=== PATIENT | female | born 1950 | race Asian ===

== ENCOUNTER → 2023-04-18 14:36 | Outpatient (REF) | payer MEDICARE, OTHER, SELFPAY | LOC: WDC 14:36 | PROVIDERS: ATTENDING PHYSICIAN Obstetrics & Gynecology; FAMILY PHYSICIAN Internal Medicine | DX: Z12.31 Encounter for screening mammogram for malignant neoplasm of breast (principal) | CPT/HCPCS: 77063; 77067 ==

== ENCOUNTER 2023-05-04 14:04 | Outpatient (RCR) | payer MEDICARE, OTHER, SELFPAY | END 2023-05-04 23:59 | disposition home or self-care (01) | LOC: RPT 14:04 | PROVIDERS: ATTENDING PHYSICIAN Internal Medicine | DX: M62.81 Muscle weakness (generalized) (principal); Z73.6 Limitation of activities due to disability; M54.50 Low back pain, unspecified; M25.551 Pain in right hip; M81.0 Age-related osteoporosis without current pathological fracture; Z85.07 Personal history of malignant neoplasm of pancreas | CPT/HCPCS: 97010; 97110; 97112; 97162 ==

== ENCOUNTER 2023-05-31 16:07 | Outpatient (RCR) | payer MEDICARE, OTHER, SELFPAY | END 2023-05-31 23:59 | disposition home or self-care (01) | LOC: RPT 16:07 | PROVIDERS: ATTENDING PHYSICIAN Internal Medicine | DX: M62.81 Muscle weakness (generalized) (principal); Z73.6 Limitation of activities due to disability; M54.50 Low back pain, unspecified; M25.551 Pain in right hip; M81.0 Age-related osteoporosis without current pathological fracture; Z85.07 Personal history of malignant neoplasm of pancreas | CPT/HCPCS: 97010; 97110; 97112 ==

== ENCOUNTER 2023-06-19 15:58 | Outpatient (RCR) | payer MEDICARE, OTHER, SELFPAY | END 2023-06-22 08:44 | disposition home or self-care (01) | LOC: RPT 15:58 | PROVIDERS: ATTENDING PHYSICIAN Internal Medicine | DX: M62.81 Muscle weakness (generalized) (principal); Z73.6 Limitation of activities due to disability; M54.50 Low back pain, unspecified; M25.551 Pain in right hip; M81.0 Age-related osteoporosis without current pathological fracture; Z85.07 Personal history of malignant neoplasm of pancreas | CPT/HCPCS: 97110; 97112 ==

== ENCOUNTER → 2023-08-20 15:20 | Outpatient (REF) | payer MEDICARE, OTHER, SELFPAY | LOC: RAD 15:20 | PROVIDERS: ATTENDING PHYSICIAN Internal Medicine | DX: M79.674 Pain in right toe(s) (principal) | CPT/HCPCS: 73660 ==

== ENCOUNTER → 2023-08-31 11:27 | Outpatient (REF) | payer MEDICARE, OTHER, SELFPAY ==
[2023-08-31 13:52] LABS: % Basophils 0.6 % (0-2); % Eosinophils 2.3 % (0-6); % Immature Granulocytes 0.2 % (0-0.5); % Lymphocytes 27.8 % (20.5-51.1); % Monocytes 7.5 % (1.7-9.3); % Neutrophils 61.6 % (42.2-75.2); Absolute Eosinophils 0.1 10^3/uL (0-0.7); Absolute Lymphocytes 1.3 10^3/uL (1.2-3.4); Absolute Monocytes 0.4 10^3/uL (0.1-0.6); Absolute Neutrophils 2.9 10^3/uL (1.4-6.5); Hematocrit 38.1 % (37.0-47.0); Hemoglobin 12.8 g/dL (12.0-16.0); Mean Corp Hgb Conc. 33.6 g/dL (33.0-37.0); Mean Corpuscular Hgb 28.7 pg (27.0-31.0); Mean Corpuscular Volume 85.4 fL (81.0-99.0); Mean Platelet Volume 9.3 fL (7.4-10.4); Nucleated Red Blood Cells % 0 %; Platelet Count 237 10^3/uL (130-400); Red Blood Cell Count 4.46 10^6/uL (4.20-5.40); Red Cell Dist. Width 13.2 % (11.5-14.5); White Blood Cell Count 4.8 10^3/uL (4.8-10.8)
[2023-08-31 14:17] LABS: ALT (SGPT) 19 U/L (0-35); AST (SGOT) 21 U/L (14-36); Albumin 4.3 g/dl (3.5-5.0); Alkaline Phosphatase 87 U/L (38-126); Blood Urea Nitrogen 26 mg/dl (7-17); Calcium 9.9 mg/dl (8.4-10.2); Carbon Dioxide 27 mmol/L (22-30); Chloride 101 mmol/L (98-107); Glucose 88 mg/dl (70-99); HDL Cholesterol 53 mg/dl; Iron 91 ug/dl (37-170); LDL Cholesterol, Calculated 100 mg/dl; Potassium 4.6 mmol/L (3.5-5.1); Sodium 134 mmol/L (135-145); Total Bilirubin 0.5 mg/dl (0.2-1.3); Total Cholesterol 179 mg/dl (50-199); Triglyceride 132 mg/dl (10-149); Uric Acid 5.1 mg/dl (2.5-6.2); Very Low Density Lipoprotein 26 mg/dl (0-30); eGFR 53.39
[2023-08-31 14:26] LABS: Percent Saturation 20 % (20-50); Total Iron Binding Capacity 436 ug/dl (265-497); Total Protein 6.9 g/dl (6.3-8.2)
[2023-08-31 14:46] LABS: TSH Reflex To Free T4 0.08 uIU/ml (0.47-4.68)
[2023-08-31 14:50] LABS: Ferritin 17.8 ng/ml (11.1-264.0)
[2023-08-31 15:13] LABS: Free T4 1.67 ng/dl (0.78-2.19)
== END ==
LOC: REG 11:27
PROVIDERS: ATTENDING PHYSICIAN Internal Medicine
DX: Z85.07 Personal history of malignant neoplasm of pancreas (principal); M81.0 Age-related osteoporosis without current pathological fracture; I10 Essential (primary) hypertension; E78.5 Hyperlipidemia, unspecified; E55.9 Vitamin D deficiency, unspecified; E03.9 Hypothyroidism, unspecified; C25.0 Malignant neoplasm of head of pancreas; E78.2 Mixed hyperlipidemia
CPT/HCPCS: 36415; 80053; 80061; 82728; 83540; 83550; 84439; 84443; 84550; 85025

== ENCOUNTER → 2024-02-20 16:26 | Outpatient (REF) | payer MEDICARE, OTHER, SELFPAY | LOC: RAD 16:26 | PROVIDERS: ATTENDING PHYSICIAN Nurse Practitioner Family; FAMILY PHYSICIAN Internal Medicine | DX: M79.602 Pain in left arm (principal) | CPT/HCPCS: 73060; 73110; 73130 ==

== ENCOUNTER 2024-03-31 17:25 | Observation (INO) | payer MEDICARE, OTHER, SELFPAY ==
[2024-03-31] VITALS (9 sets, daily range): BP systolic 139–157; BP diastolic 60–103; BMI 24.8; BMI 24.1
[2024-03-31 13:54] LABS: % Basophils 0.5 % (0-2); % Eosinophils 0.3 % (0-6); % Immature Granulocytes 0.2 % (0-0.5); % Lymphocytes 21.8 % (20.5-51.1); % Monocytes 3.7 % (1.7-9.3); % Neutrophils 73.5 % (42.2-75.2); Absolute Lymphocytes 1.4 10^3/uL (1.2-3.4); Absolute Monocytes 0.2 10^3/uL (0.1-0.6); Absolute Neutrophils 4.5 10^3/uL (1.4-6.5); Hematocrit 38.6 % (37.0-47.0); Hemoglobin 13.4 g/dL (12.0-16.0); Mean Corp Hgb Conc. 34.7 g/dL (33.0-37.0); Mean Corpuscular Hgb 29.6 pg (27.0-31.0); Mean Corpuscular Volume 85.4 fL (81.0-99.0); Mean Platelet Volume 8.7 fL (7.4-10.4); Nucleated Red Blood Cells % 0 %; Platelet Count 205 10^3/uL (130-400); Red Blood Cell Count 4.52 10^6/uL (4.20-5.40); Red Cell Dist. Width 12.1 % (11.5-14.5); White Blood Cell Count 6.2 10^3/uL (4.8-10.8)
[2024-03-31 14:08] LABS: ALT (SGPT) 22 U/L (0-35); AST (SGOT) 23 U/L (14-36); Albumin 4.6 g/dl (3.5-5.0); Alkaline Phosphatase 115 U/L (38-126); Blood Urea Nitrogen 22 mg/dl (7-17); Calcium 10.2 mg/dl (8.4-10.2); Carbon Dioxide 19 mmol/L (22-30); Chloride 92 mmol/L (98-107); Glucose 129 mg/dl (70-99); Lipase 16 U/L (23-300); Potassium 4.9 mmol/L (3.5-5.1); Sodium 124 mmol/L (135-145); Total Bilirubin 0.9 mg/dl (0.2-1.3); Total Protein 7.6 g/dl (6.3-8.2)
--- NOTE | 2024-03-31 15:03 | ED.GENMED ---
History of Present Illness
General
Chief Complaint: Abdominal Symptoms
Source: patient and spouse
Exam Limitations: none
Time Seen by Provider: 03/31/24 14:27
History of Present Illness
History of Present Illness:
73yoF with a history of pancreatic cancer s/p Whipple procedure 10 years ago, hypertension, hypothyroidism, and GERD presenting with her for evaluation of vomiting. Symptoms began last night. Patient reports having several episodes of
large-volume emesis. She has been trying to keep down liquids and rice but has been unable to tolerate it. Patient denies any abdominal pain although states she has a stretching sensation in her left upper quadrant. She had a normal bowel
movement earlier today. She was around her son and grandchildren yesterday who are currently sick with URI symptoms and diarrhea. She denies any suspicious food intake. She is otherwise asymptomatic and denies any fevers, diarrhea, chest pain,
shortness of breath.
Past History
Past History
ED Past Medical History: Hypothyroidism, Other (pancreatic CA) and Other (GERD, Kaelyn Whipple, Cancer, hypothyroidism, osteoporosis with recent Reclas)
ED Past Surgical History: Other (Whipple procedure)
Social History
Tobacco: Non-smoker
Alcohol: None
Drug: None
Personal:
Living: with family
Employment: Employed
Family History
Family History: Other (Nonsignificant)
Phy Exam
General Physical Exam
General Presentation: well appearing and no apparent distress
General age: appears stated age
General Skin: warm and dry
General Habitus: normal
General Mental: alert
ENT Exam
ENT Exam: normocephalic
Cardiovascular Exam
Cardiovascular Exam: regular rate/rhythm
Pulmonary Exam
Pulmonary Exam: lungs clear, no respiratory distress, no rales, no crackles and no rhonchi
Gastrointestinal Exam
Gastrointestinal Exam: soft, non distended and other (Minimal tenderness in epigastric region. Abdomen soft, non-distended. No rebound or guarding. )
Neurological Exam
Neurological Exam: alert
Wheeler Coma Scale
Eye Opening: Spontaneous
Verbal Response: Oriented
Motor Response: Obeys Commands
GCS Total Score: 15
Skin Exam
Skin Exam: normal color and warm/dry
Psychiatric Exam
Psychiatric Exam: normal mood/affect
Course
Orders/Labs/Results
Orders:
Orders
03/31/24 13:46
Complete Blood Count/With Diff Urgent
Comprehensive Metabolic Panel Urgent
Cortisol, Random Urgent
Comment: ADD ON
Glycohemoglobin (HgbA1c) Urgent
Lipase Urgent
Serum Osmolality Urgent
Comment: ADD ON
TSH Reflex To Free T4 Urgent
Comment: ADD ON
03/31/24 14:50
Electrocardiogram (*1) Urgent
Reason for Study: Abdominal Pain
0.9% Sodium Chloride 1000 ml [Nss] 1,000 ml IV BOLUS
Ondansetron Injectable [Zofran] 4 mg IV NOW STA
03/31/24 15:31
COVID-19 Antigen Urgent
Source: Nasal Swab
Troponin I Urgent
Influenza A+B Rapid Molecular Urgent
ANGELIQUE Source: Nasal Swab
Specimen Description:
03/31/24 17:04
Code Status As Directed
Resuscitation Status: Full Code
Bisacodyl [Dulcolax] 10 mg RECTAL [id number] PRN
Docusate W/Senna [Senokot-S] 1 tablet PO BIDPRN PRN
Polyethylene Glycol Powder [Miralax] 17 grams PO DAILYPRN PRN
Activity As Directed
Activity Level: Out of Bed-Early Mobility
Vital Signs As Directed
Frequency: Per unit guidelines
Weight As Directed
Frequency: Daily
03/31/24 17:09
Ondansetron Injectable [Zofran] 4 mg IV Q6HPRN PRN
Sequential Compression Device [Pneumatic Compression Sleeves] As Directed
Type: Knee high
03/31/24 17:11
Add On- LAB Routine
Tests Added?: serum osm,cortisol,tsh reflex to T4
Urine Osmolality Random [Osmolality, Random Urine] Urgent
Urine Sodium Urgent
DX Deep Vein Thrombosis Video Routine
03/31/24 17:12
Add On- LAB Routine
Tests Added?: HbA1C, TSH WITH REFLEX TO t4
Admit/Transfer Patient As Directed
Co-Sign Provider:
Level of Care: Observation services
Assign to:: Medical/Surgical
Physician / Group: Hospitalist
Diagnosis: Vomiting, Hyponatremia
03/31/24 17:13
PRN Pain Medication Management As Directed
May give lesser potent ordered pain med per pt: Yes
preference::
Protocol:: Medication orders for pain may be administered in a
manner that supports deferring to patient preference
when the pt is:
- Requesting an ordered lesser potent pain medication.
Least to most potent pain medications are defined
as: acetaminophen < NSAID < tramadol < opioids
(morphine, oxycodone, hydromorphone).
- Requesting a lesser dose of the same medication IF
ORDERED.
- Requesting a less intrusive route of administration
if both routes are prescribed by the provider (PO <
IV).
03/31/24 20:52
Levothyroxine [Synthroid] 112 mcg PO DAILY
Nortriptyline [Pamelor] 10 mg PO NOON
Omeprazole Suspension [Prilosec Baby Oral Suspension] 20 mg PO DAILY
jozxcn-mjcjxolz-etibyjo [Pancreaze] 2 cap PO MEALS
03/31/24 22:00
Amlodipine [Norvasc] 2.5 mg PO HS
Gabapentin [Neurontin] 600 mg PO HS
04/01/24 06:00
Basic Metabolic Panel IN AM
Complete Blood Count/With Diff IN AM
Magnesium IN AM
Vitamin B12 IN AM
04/01/24 08:00
Aspirin Low Dose EC [Aspir Low (Enteric Coated)] 81 mg PO DAILY
Ferrous Sulfate [Feosol] 325 mg PO DAILY
Lactobac/Bifidobac [Visbiome] 1 cap PO DAILY
Abnormal Lab Results
03/31/24
13:46
Sodium 124 L mmol/L
(135-145)
Chloride 92 L mmol/L
(98-107)
Carbon Dioxide 19 L mmol/L
(22-30)
BUN 22 H mg/dl
(7-17)
Creatinine 1.2 H mg/dL
(0.6-1.0)
Glucose 129 H mg/dl
(70-99)
Serum Osmolality 265 L mOsm/kg
(275-300)
Lipase 16 L U/L
(23-300)
03/31/24 13:46
03/31/24 13:46
Vital Signs
Initial and Last Documented VS:
Initial Vital Signs
Temp Pulse Resp BP Pulse Ox
97.5 F 89 24 149/75 100
03/31/24 13:36 03/31/24 13:36 03/31/24 13:36 03/31/24 13:36 03/31/24 13:36
Last Documented Vital Signs
Temp Pulse Resp BP Pulse Ox
98.4 F 79 14 139/61 99
03/31/24 16:30 03/31/24 20:30 03/31/24 20:30 03/31/24 20:00 03/31/24 20:30
MDM/Problems Addressed
Differential Diagnosis Includes:
73yoF here with nausea and vomiting since last night. +Sick contacts. No fevers or diarrhea. Denies abd pain currently. VSS. She is well appearing in no distress. There is minimal tenderness in the epigastric region on exam without signs of
peritonitis. Differential diagnosis includes but is not limited to: gastroenteritis, viral illness, dehydration
Initial ED plan: Abdominal labs obtained in triage. Labs reveal a sodium of 124, chloride 92, and bicarb of 19. Lab abnormalities likely 2/2 GI losses/dehydration. Creatinine 1.2 which is close to baseline. Remainder of labs including white
count and lipase within normal limits. COVID/flu swab and troponin/EKG ordered. IV Zofran and fluid bolus for symptoms. Recommended CT abdomen which patient declines stating she had a CT last month for cancer screening which was normal. Patient
will require hospitalization given degree of hyponatremia.
*EKG
Interpreted by ED Provider?: Yes
EKG Intrepretation Date: 03/31/24
Heart Rate: 80
Rate: normal
Rhythm: sinus
Leeds: normal axis
Interval: normal interval
QRS Pattern: normal QRS
Ischemia: no ischemia
*Critical Care Note
Total Time (30-74mins, 75-104mins- exclusive of procedures): Not Applicable
ED Attending Note
-
Portions of this chart may have been created with voice recognition software.� Occasional wrong word or��sound alike� substitutions may have occurred due to the inherent limitations of voice recognition software.
Discharge Plan
Departure
Patient Disposition: Admit
Date of Disposition: 03/31/24
Time of Disposition: 16:20
Presentation/result/management discussed w/ accepting MD/DO: Hospitalist
Discharge Problem:
Nausea and vomiting, Hyponatremia
Interventions
Interventions:
*Risk Screen - Suicide Last Done: 03/31/24 19:40
*General Assessment Last Done: 03/31/24 19:30
*Neglect/Abuse Screening Last Done: 03/31/24 19:40
*ED COVID-19 Vaccine History Last Done: 03/31/24 19:28
WE-Kzgivk-Lwlvsvgmrf Assessment Last Done: 03/31/24 16:00
[2024-03-31] MEDS: NSS 1000 IV (15:28)
[2024-03-31 16:09] LABS: Troponin I < 0.012 ng/ml
[2024-03-31 16:24] LABS: COVID-19 Antigen Negative (Negative)
--- NOTE | 2024-03-31 17:17 | HPS.HSE ---
Addendum entered and electronically signed by Nuria Awad MD 03/31/24 18:18:
I personally performed a history and physical exam of the patient and discussed management with the resident. I reviewed the resident's note and agree with the documented findings and plan of care HPI/CC except changes in my documentation.
73-year-old female with history of pancreatic cancer with Whipple surgery 10 years ago presented with vomiting. Denies any pain she was around her son and grandchildren who are sick with URI symptoms and diarrhea.
Patient is feeling better now
Awake alert oriented
Cardiovascular system S1-S2 appreciated
Chest clear to auscultation
Abdomen soft and nontender
# Vomiting
Admit to Obs
Multiple sick [id number]-[id number]-ly-law, granddaughter who she visited over the weekend now sick with similar symptoms
Likely viral gastroenteritis no diarrhea
Clears tonight
Dehydration likely secondary to above
Symptomatic treatment with antiemetics, IV fluids
She had a bowel movement today
Abdomen exam benign
She wants to hold off on any imaging at present, which is fine
If symptoms are persisting with symptomatic management to consider imaging which I discussed with patient and at bedside
# Hyponatremia-likely hypovolemic. But check serum and urine osmolality, urine sodium, cortisol and TSH. D5 normal saline and follow sodium in the morning
# CKD stage II
# History of pancreatic cancer with history of Whipple procedure done [place] -on Pancreaze 3 times daily. Gets follow-ups every 6 months
# GERD-continue PPI
# Hypertension - amlodipine
# Hypothyroidism-Synthroid 112 mcg daily
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
# GERD-continue PPI
# Osteoporosis-on Prolia as OP
# DVT prophylaxis-Lovenox
# CODE STATUS-Full code
Discussed in detail with at bedside.
Original Note:
Family Physician
-
Family Physician: Patricia Whipple
Chief Complaint
-
Nausea and vomiting
History of Present Illness
73-year-old female with PMH of pancreatic cancer s/p Whipple procedure 2014 (follows GI specialist at [facility]) s/p chemo and radiation with residual peripheral neuropathy, CKD stage IIIa, essential hypertension, mixed hyperlipidemia, GERD, osteoporosis,
acquired hypothyroidism who presented to the ED on 03/31 with 1 day history of nausea and vomiting. Patient was seen with her at bedside. Reports that they visited her son and his family who are all sick yesterday. After few hours,
patient started throwing up. 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 Patient also reported that she ate stuffed bread from an [employer] store the night before which she microwaved. She reports that this was the first
time she was eating such food. She denies abdominal pain, fever, chills, chest pain, shortness of breath, constipation or diarrhea. Her last BM was this a.m., reports formed stool with no blood or mucus. She denies history of abdominal surgeries
other than the Whipple procedure. She follows oncology at [place]. Stated she had recent CT of chest, abdomen and pelvis (03/06) which were all normal.
Medical History
Past Medical History
Past Medical History: Reports Cancer (Pancreatic), GERD, HTN and Hypercholesterolemia
Past Surgical History: Reports Other (Pancreatic surgery)
Social History
Tobacco: Non-smoker
Alcohol: None
Drug: None
Personal:
Living: With Family
Employment: Retired
Family History
Family History: Not pertinent
Allergies / Home Medications
Allergies reflects when Allergies were last updated in [employer].
Home Medications with original date entered in [employer]
Allergy/Medication List:
Allergies
Allergy/AdvReac Type Severity Reaction Status Date / Time
ciprofloxacin [From Cipro] Allergy Unknown Verified 03/31/24 13:39
Review of Systems
-
History Source: Patient and Family
A 12 point ROS was completed and negative except as noted: Yes
Constitutional: Reports No Symptoms; Denies Fever
Respiratory: Reports No Symptoms
Cardiac: Reports No Symptoms
Abdomen/GI: Reports Nausea and Vomiting; Denies Abdominal Pain, Diarrhea or Constipated
: Reports No Symptoms
Musculoskeletal: Reports No Symptoms
Skin: Reports No Symptoms
Neurological: Reports Numbness (Peripheral neuropathy); Denies Headache or Weakness
Endocrine: Reports No Symptoms
Hematologic/Lymphatic: Reports No Symptoms
Physical Exam
Vital Signs
Vital Signs
Temp Pulse Resp BP Pulse Ox
97.5 F 89 24 149/75 100
03/31/24 13:36 03/31/24 13:36 03/31/24 13:36 03/31/24 13:36 03/31/24 13:36
Physical Exam
General: No Apparent Distress, Comfortable and Conversant
HEENT: Anicteric and Atraumatic
Respiratory: Clear and Non Labored Respirations; No Wheezes, Rhonchi or Crackles
Cardiac: S1/S2 and Regular Rhythm; No Murmur or Rub
Breast: Deferred by me
GI: Soft, Non Tender and Non Distended
Rectal: Deferred by Provider
Genito-urinary: Deferred by me
Musculoskeletal: No Clubbing, No Cyanosis and No Edema
Skin: Warm and Dry
Neuro: Awake, Alert, AO x 3 and Nonfocal/grossly intact
Psych: Calm
Laboratory Results
-
03/31/24 13:46
03/31/24 13:46
Laboratory Results
Total Bilirubin 0.9 mg/dl (0.2-1.3) 03/31/24 13:46
AST 23 U/L (14-36) 03/31/24 13:46
ALT 22 U/L (0-35) 03/31/24 13:46
Alkaline Phosphatase 115 U/L (38-126) 03/31/24 13:46
Troponin I < 0.012 ng/ml 03/31/24 15:31
Lipase 16 U/L (23-300) L 03/31/24 13:46
Data Reviewed
-
Lab Data: Labs Reviewed by me and Discussed with Physician
Old Records: Reviewed
Impression/Plan
-
IMPRESSION: 73-year-old female with PMH of pancreatic cancer, hypertension, hyperlipidemia who presented to ED with acute onsets of nausea and vomiting few hours after eating stuffed breath.
Assessment/plan:
#Presentation with nausea and vomiting
-Suspect acute gastroenteritis from food poisoning.
-Symptoms improved with IV fluid.
-IV Zofran PRN.
-Clear liquid diet.
-COVID-19, flu negative.
-Continue IV fluid with 5D NSS.
-Check TSH with reflex to T4
-Consider abdominal x-ray in a.m. if not getting better.
#Acute hyponatremia
-Suspect from hypovolemia.
-Change IV fluid to D5 normal saline.
-Follow BMP.
#Acquired hypothyroidism
-Chemo induced.
-Check TSH with reflex to T4.
#Essential hypertension
-Continue amlodipine 2.5 mg PO HS
#CKD stage IIIa
-Creatinine 1.2, baseline 1.1.
-Follow BMP.
#Acquired peripheral neuropathy
-Continue gabapentin.
#GERD
-Continue omeprazole
DVT PPx: SCDs
Diet: Clear liquid
CODE STATUS: Full code.
[2024-03-31] MEDS: D5/0.9% SODIUM CHLORIDE 1000 IV (18:58)
[2024-03-31 19:11] LABS: Osmolality Serum 265 mOsm/kg (275-300)
[2024-03-31 19:39] LABS: Cortisol, Random 38.4 ug/dl; TSH Reflex To Free T4 0.49 uIU/ml (0.47-4.68)
[2024-03-31] MEDS: SYNTHROID PO (21:18)
[2024-03-31] MEDS: PAMELOR PO (21:18)
[2024-03-31] MEDS: PROTONIX PO (21:19)
[2024-03-31] MEDS: ZENPEP DELAYED RELEASE CAPSULE PO (21:19)
[2024-03-31] MEDS: ZOFRAN 4 MG IV (21:31)
--- NOTE | 2024-03-31 21:39 | PTCARENOTE ---
Received pt from ED @ 1915. AAOx3, VSS, ambulatory in room. Oriented to room, call larkin and plan of care.
[2024-03-31 23:13] LABS: Osmolality Urine 193 mOsm/kg (300-900)
[2024-03-31 23:40] LABS: Urine Sodium 51 mmol/L (30-90)
[2024-04-01 05:36] VITALS: BMI 24.0
[2024-04-01] MEDS: SYNTHROID 112 MCG PO (06:21)
[2024-04-01] MEDS: D5/0.9% SODIUM CHLORIDE 1000 IV (06:23)
--- NOTE | 2024-04-01 06:54 | W.PN.HOSP.TC ---
Today's Communication/Plan
-
Follow BMP in 1 week
Discharge planning
Assessment / Plan
Assessment / Plan
IMPRESSION: 73-year-old female with PMH of pancreatic cancer, hypertension, hyperlipidemia who presented to ED with acute onsets of nausea and vomiting few hours after eating stuffed breath.
Assessment/plan:
#Acute gastroenteritis
-Resolved, tolerated diet
-Had formed BM yesterday, no diarrhea.
-COVID-19, flu negative.
-TSH WNL.
-Refused abdominal imaging during this admission. With partial as outpatient if symptoms recur.
#Acute hyponatremia-hypovolemic.
-Improving with IV fluid.
-Follow BMP in 1 week.
#Acquired hypothyroidism
-Chemo induced.
-Continue levothyroxine.
#Essential hypertension
-Continue amlodipine 2.5 mg PO HS
#CKD stage IIIa
-Creatinine 0.9.
-Follow BMP.
#History of pancreatic cancer
-S/p Whipple procedure 2014 [place].
-Continue pancreze.
#Acquired peripheral neuropathy from chemotherapy
-Continue gabapentin.
#GERD
-Continue omeprazole
#Osteoporosis
-On Prolia outpatient
DVT PPx: Lovenox
Diet: Clear liquid
CODE STATUS: Full code.
Anticipated Discharge: Today
Subjective/Interval History
-
Date of Service: April 01, 2024
Patient seen and examined. She reports that she is feeling well today. She also reports having more energy today. Denies fever or chills. Denies nausea, vomiting, abdominal pain, headaches. No chest pain or shortness of breath.
Objective Data
-
Labs:
Laboratory Results
04/01/24
04:44
WBC Pending
Hgb Pending
Hct Pending
Plt Count Pending
Sodium Pending
Potassium Pending
Chloride Pending
Carbon Dioxide Pending
BUN Pending
Creatinine Pending
Glucose Pending
Calcium Pending
Vital Signs:
Vital Signs
Temp Pulse Resp BP Pulse Ox
98.3 F 79 14 147/65 97
03/31/24 23:34 03/31/24 23:34 03/31/24 23:34 03/31/24 23:34 03/31/24 23:34
I&O
03/30/24 03/31/24 04/01/24
06:59 06:59 06:59
Output Total 500 / 500
Balance -500 / -500
Review of Systems
-
History Source: Patient
All other systems: Not reviewed unless documented
Physical Exam
-
General: Well Developed and No Apparent Distress
HEENT: Normocephalic, Atraumatic and Moist Mucous Membranes
Respiratory: Clear to Auscultation
Cardiac: Regular Rhythm and S1/S2; Negative Murmur, Rub or Gallop
GI: Soft, Nontender, Nondistended and Normal Bowel Sounds; Negative Organomegaly
Rectal: Deferred by Provider
Musculoskeletal: No Clubbing, No Cyanosis and No Edema
Skin: Warm; Negative Rash
Neuro: Awake, AO x 3 and Nonfocal/Grossly Intact
Psych: Calm
Data Reviewed
-
Labs: Labs Reviewed by me and Discussed with Physician
[2024-04-01 06:56] LABS: % Basophils 0.5 % (0-2); % Lymphocytes 33.7 % (20.5-51.1); % Monocytes 9.6 % (1.7-9.3); % Neutrophils 55.2 % (42.2-75.2); Absolute Lymphocytes 1.4 10^3/uL (1.2-3.4); Absolute Monocytes 0.4 10^3/uL (0.1-0.6); Absolute Neutrophils 2.3 10^3/uL (1.4-6.5); Hematocrit 34.8 % (37.0-47.0); Hemoglobin 11.7 g/dL (12.0-16.0); Mean Corp Hgb Conc. 33.6 g/dL (33.0-37.0); Mean Corpuscular Hgb 29.8 pg (27.0-31.0); Mean Corpuscular Volume 88.5 fL (81.0-99.0); Mean Platelet Volume 9.2 fL (7.4-10.4); Nucleated Red Blood Cells % 0 %; Platelet Count 180 10^3/uL (130-400); Red Blood Cell Count 3.93 10^6/uL (4.20-5.40); Red Cell Dist. Width 12.4 % (11.5-14.5); White Blood Cell Count 4.2 10^3/uL (4.8-10.8)
[2024-04-01 07:29] VITALS: BP 129/63
[2024-04-01 07:29] LABS: Blood Urea Nitrogen 13 mg/dl (7-17); Calcium 8.7 mg/dl (8.4-10.2); Carbon Dioxide 20 mmol/L (22-30); Chloride 104 mmol/L (98-107); Estimated Creatinine Clearance 44 ml/min; Glucose 120 mg/dl (70-99); Magnesium 2.2 mg/dl (1.6-2.3); Potassium 4.4 mmol/L (3.5-5.1); Sodium 131 mmol/L (135-145); eGFR > 60.00
[2024-04-01 07:59] LABS: Vitamin B12 872 pg/ml (239-931)
[2024-04-01] MEDS: VISBIOME 1 CAP PO (08:42)
[2024-04-01] MEDS: VITAMIN D3 (cholecalciferol) 25 MCG PO (08:42)
[2024-04-01] MEDS: FEOSOL 325 MG PO (08:42)
[2024-04-01] MEDS: PROTONIX 40 MG PO (08:42)
[2024-04-01] MEDS: ZENPEP DELAYED RELEASE CAPSULE 2 CAPSULE PO ×2 (08:47→12:00)
[2024-04-01 09:14] LABS: Glycohemoglobin (HgbA1c) 6.1 % (4.0-5.6)
[2024-04-01] MEDS: ZOFRAN 4 MG IV (09:42)
[2024-04-01] MEDS: PAMELOR 10 MG PO (12:00)
--- NOTE | 2024-04-01 14:14 | CM ---
greenhouse manager reviewed patient's chart and met with patient and spouse at bedside, patient lives with with spouse in a 2 story home patient is independent with adl's and ambulation, no dme, patient is very active Yoga, along with exercise classes,
patient drives, home when stable, no needs.
PCP: Dr. Whipple
Pharmacy: [facility] in [place]
Plan; Home no needs.
--- NOTE | 2024-04-01 15:03 | W.DCSUMMARY ---
Discharge Summary
Discharge Data
Date of Admission: 03/31/24
Date of Discharge: 04/01/24
-
Pending Results: No
Hospital Course
Discharging Physician : Delmi Quiñones MD ; Venkat Loja MD
Disposition : Home
Primary care physician : Patricia Whipple MD
Principal Discharge diagnosis :
Viral gastroenteritis
Hyponatremia
GERD
Hypothyroidism
Essential hypertension
Peripheral neuropathy
Hospital Course :
73-year-old female with PMH of pancreatic cancer with Whipple procedure done 10 years ago who presented to the hospital with vomiting. She was visiting with her son and grandchildren who were sick with URI symptoms and suddenly got sick within 2
hours.
She reported eating stuffed breath the night before her symptoms started. She denied diarrhea, abdominal pain, fever and chills. At the time of admission, her sodium was 124, and her creatinine was 1.2. Her troponin was negative and lipase was
16. Her TSH was 0.49 and cortisol level 38.4. She was observed overnight in the hospital with IV fluid resuscitation and her symptoms improved. She had no further emesis in the hospital.
Hyponatremia: Her sodium level improved with D5 normal saline and her creatinine returned back to baseline.
Condition on discharge: Awake, alert and oriented x3, answer question properly, able to make own decision and take care of activities of daily living, speech clear and comprehensive, continent of the bowel and bladder, ambulate without lpn medical assistant,
goes home where lives with the family independently. She has been instructed to follow-up with her PCP in about 1 week and to obtain a BMP before the visit for review.
Discharge Plan
-
Patient Disposition: Home (Routine Discharge)
Discharge Diagnosis/Procedures: Viral gastroenteritis
Hyponatremia
GERD
Hypothyroidism
Essential hypertension
Peripheral neuropathy
Condition: Good
Diet: Low Residue
Activity: As tolerated
Driving Restrictions: No driving for 24 hours
Bathing Restrictions: None
Blood Work: BMP in 1 week
Activity Restrictions/Additional Instructions:
If your symptoms do not completely resolve you may need imaging of your abdomen. Follow-up with your PCP
Referrals:
Patricia Whipple MD [Family Provider] - in less than 1 week
Prescriptions:
Continued
Pancreaze [phone]- [phone] unit Capsule,Delayed Release(Dr/Ec)
2 cap PO MEALS Qty: 0
Patient Comments:
unknown dose
amlodipine 2.5 MG tablet
2.5 mg PO HS
ascorbic acid (vitamin C) [Vitamin C] 500 mg Tablet
500 mg PO DAILY Qty: 0
Patient Comments:
powder
omeprazole 20 MG capsule,delayed release(DR/EC)
20 mg PO DAILY
levothyroxine 112 MCG tablet
112 mcg PO DAILY
aspirin 81 mg Tablet,Delayed Release (Dr/Ec)
81 mg PO DAILY Qty: 0
therapeutic multivitamin Tablet
1 tab PO DAILY
nortriptyline 10 mg Capsule
10 mg PO NOON
ferrous sulfate 325 mg (65 mg iron) Tablet
325 mg PO DAILY
gabapentin 300 mg Capsule
600 mg PO HS
vitamin B complex Tablet
1 tab PO DAILY
cholecalciferol (vitamin D3) [Vitamin D3] 25 mcg (1,000 unit) Tablet
25 mcg PO DAILY
Visbiome 112.5 billion cell Capsule
1 cap PO DAILY
Prolia 60 mg/mL Syringe
60 mg SC [id number]
Calcium Magnesium 500 mg calcium- 250 mg Tablet
1 tab PO DAILY
Discharge Orders:
Discharge Patient (As Directed); Ordered 04/01/24
Ordered By: Venkat Loja
Discharge Date and Time
Discharge Date/Time: 04/01/24 17:05
Print Language: PERSIAN
[2024-04-01 15:44] VITALS: BP 138/71
--- NOTE | 2024-04-01 16:08 | W.PN.UPDATE ---
Update Note
Progress Note Update
73-year-old female with history of pancreatic cancer with Whipple surgery 10 years ago presented with vomiting. Denies any pain she was around her son and grandchildren who are sick with URI symptoms and diarrhea.
Patient is feeling better now
Awake alert oriented
Cardiovascular system S1-S2 appreciated
Chest clear to auscultation
Abdomen soft and nontender
# Vomiting
Resolved
Tolerating diet
Multiple sick [id number]-sukvjgxu-qi-law, granddaughter who she visited over the weekend now sick with similar symptoms
Likely viral gastroenteritis no diarrhea
Dehydration likely secondary to above
She had a bowel movement yesterday
Abdomen exam benign
She wants to hold off on any imaging at present, which is fine as she improved.
If gets any more symptoms as OP needs imaging.
# Hyponatremia-likely hypovolemic. Urine and serum osmolality with mixed etiologies. Sodium has improved IV fluids stopped. Rpt BMP 1 week with results to PCP
# GFR seems to be more than 60 patient likely has NIKOLAI unclear if she also has CKD or not.
# History of pancreatic cancer with history of Whipple procedure done 2014-[place] -on Pancreaze 3 times daily. Gets follow-ups every 6 months
# GERD-continue PPI
# Hypertension - Amlodipine
# Hypothyroidism-Synthroid 112 mcg daily
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
# GERD-continue PPI
# Osteoporosis-on Prolia as OP
# DVT prophylaxis-Lovenox
# CODE STATUS-Full code
Discussed in detail with
D/W RN
She wants to go home as she improved.
Will discharge
== END 2024-04-01 17:05 | disposition home or self-care (01) ==
LOC: 4 WEST ACU 17:25
PROVIDERS: Emergency Medicine; Physician Assistant; Student in an Organized Health Care Education/Training Program; ADMITTING PHYSICIAN Hospitalist; EMERGENCY PHYSICIAN Student in an Organized Health Care Education/Training Program; FAMILY PHYSICIAN Internal Medicine
DX: A08.4 Viral intestinal infection, unspecified (principal); Z85.07 Personal history of malignant neoplasm of pancreas; Z90.49 Acquired absence of other specified parts of digestive tract; Z90.411 Acquired partial absence of pancreas; I12.9 Hypertensive chronic kidney disease with stage 1 through stage 4 chronic kidney disease, or unspecified chronic kidney disease; E03.9 Hypothyroidism, unspecified; Z11.52 Encounter for screening for COVID-19; E87.1 Hypo-osmolality and hyponatremia; K21.9 Gastro-esophageal reflux disease without esophagitis; M81.0 Age-related osteoporosis without current pathological fracture; Z92.21 Personal history of antineoplastic chemotherapy; E86.1 Hypovolemia; N18.31 Chronic kidney disease, stage 3a; G62.0 Drug-induced polyneuropathy; Z92.3 Personal history of irradiation
CPT/HCPCS: 80048; 80053; 82533; 82607; 83036; 83690; 83735; 83930; 83935; 84300; 84443; 84484; 85025; 87502; 87811; 93005; 96360; 99285; G0378

== ENCOUNTER → 2024-04-11 11:57 | Outpatient (REF) | payer MEDICARE, OTHER, SELFPAY ==
[2024-04-11 12:54] LABS: % Basophils 0.8 % (0-2); % Eosinophils 1.7 % (0-6); % Immature Granulocytes 0.2 % (0-0.5); % Lymphocytes 28.6 % (20.5-51.1); % Monocytes 7.4 % (1.7-9.3); % Neutrophils 61.3 % (42.2-75.2); Absolute Eosinophils 0.1 10^3/uL (0-0.7); Absolute Lymphocytes 1.5 10^3/uL (1.2-3.4); Absolute Monocytes 0.4 10^3/uL (0.1-0.6); Absolute Neutrophils 3.2 10^3/uL (1.4-6.5); Hematocrit 40.8 % (37.0-47.0); Hemoglobin 13.4 g/dL (12.0-16.0); Mean Corp Hgb Conc. 32.8 g/dL (33.0-37.0); Mean Corpuscular Hgb 29.6 pg (27.0-31.0); Mean Corpuscular Volume 90.1 fL (81.0-99.0); Mean Platelet Volume 8.9 fL (7.4-10.4); Nucleated Red Blood Cells % 0 %; Platelet Count 229 10^3/uL (130-400); Red Blood Cell Count 4.53 10^6/uL (4.20-5.40); Red Cell Dist. Width 12.7 % (11.5-14.5); White Blood Cell Count 5.2 10^3/uL (4.8-10.8)
[2024-04-11 13:03] LABS: ALT (SGPT) 19 U/L (0-35); AST (SGOT) 24 U/L (14-36); Albumin 4.6 g/dl (3.5-5.0); Alkaline Phosphatase 89 U/L (38-126); Blood Urea Nitrogen 26 mg/dl (7-17); Carbon Dioxide 25 mmol/L (22-30); Chloride 97 mmol/L (98-107); Glucose 94 mg/dl (70-99); HDL Cholesterol 51 mg/dl; LDL Cholesterol, Calculated 100 mg/dl; Potassium 5.6 mmol/L (3.5-5.1); Sodium 130 mmol/L (135-145); Total Bilirubin 0.8 mg/dl (0.2-1.3); Total Cholesterol 190 mg/dl (50-199); Total Protein 7.6 g/dl (6.3-8.2); Triglyceride 196 mg/dl (10-149); Very Low Density Lipoprotein 39 mg/dl (0-30); eGFR 39.73
[2024-04-11 13:34] LABS: TSH Reflex To Free T4 0.23 uIU/ml (0.47-4.68)
[2024-04-11 14:02] LABS: Free T4 1.84 ng/dl (0.78-2.19)
== END ==
LOC: REG 11:57
PROVIDERS: ATTENDING PHYSICIAN Internal Medicine; FAMILY PHYSICIAN Student in an Organized Health Care Education/Training Program
DX: R73.9 Hyperglycemia, unspecified (principal); D64.9 Anemia, unspecified; E03.9 Hypothyroidism, unspecified; E87.1 Hypo-osmolality and hyponatremia
CPT/HCPCS: 80053; 80061; 84439; 84443; 85025

== ENCOUNTER → 2024-04-24 14:48 | Outpatient (REF) | payer MEDICARE, OTHER, SELFPAY | LOC: WDC 14:48 | PROVIDERS: ATTENDING PHYSICIAN Internal Medicine | DX: Z12.31 Encounter for screening mammogram for malignant neoplasm of breast (principal) | CPT/HCPCS: 77063; 77067 ==

== ENCOUNTER → 2024-04-30 09:37 | Outpatient (REF) | payer MEDICARE, OTHER, SELFPAY | LOC: WDC 09:37 | PROVIDERS: ATTENDING PHYSICIAN Internal Medicine | DX: R92.8 Other abnormal and inconclusive findings on diagnostic imaging of breast (principal) | CPT/HCPCS: 76642 ==

== ENCOUNTER → 2024-06-26 14:09 | Outpatient (REF) | payer MEDICARE, OTHER, SELFPAY | LOC: RCS 14:09 | PROVIDERS: ATTENDING PHYSICIAN Student in an Organized Health Care Education/Training Program | DX: R53.83 Other fatigue (principal); R06.02 Shortness of breath; R07.89 Other chest pain | CPT/HCPCS: 93017 ==

== ENCOUNTER → 2024-07-04 13:27 | Outpatient (REF) | payer MEDICARE, OTHER, SELFPAY ==
[2024-07-04 14:37] LABS: % Basophils 0.9 % (0-2); % Eosinophils 1.2 % (0-6); % Immature Granulocytes 0.2 % (0-0.5); % Lymphocytes 20.3 % (20.5-51.1); % Monocytes 6.4 % (1.7-9.3); Absolute Basophils 0.1 10^3/uL (0-0.2); Absolute Eosinophils 0.1 10^3/uL (0-0.7); Absolute Lymphocytes 1.1 10^3/uL (1.2-3.4); Absolute Monocytes 0.4 10^3/uL (0.1-0.6); Hematocrit 37.1 % (37.0-47.0); Hemoglobin 12.3 g/dL (12.0-16.0); Mean Corp Hgb Conc. 33.2 g/dL (33.0-37.0); Mean Corpuscular Hgb 30.5 pg (27.0-31.0); Mean Corpuscular Volume 92.1 fL (81.0-99.0); Mean Platelet Volume 8.9 fL (7.4-10.4); Nucleated Red Blood Cells % 0 %; Platelet Count 246 10^3/uL (130-400); Red Blood Cell Count 4.03 10^6/uL (4.20-5.40); Red Cell Dist. Width 12.9 % (11.5-14.5); White Blood Cell Count 5.6 10^3/uL (4.8-10.8)
[2024-07-04 15:06] LABS: ALT (SGPT) 26 U/L (0-35); AST (SGOT) 23 U/L (14-36); Albumin 4.3 g/dl (3.5-5.0); Alkaline Phosphatase 73 U/L (38-126); Blood Urea Nitrogen 25 mg/dl (7-17); Calcium 9.9 mg/dl (8.4-10.2); Carbon Dioxide 24 mmol/L (22-30); Chloride 104 mmol/L (98-107); Glucose 93 mg/dl (70-99); Potassium 5.1 mmol/L (3.5-5.1); Sodium 137 mmol/L (135-145); Total Bilirubin 0.6 mg/dl (0.2-1.3); eGFR 43.42
[2024-07-04 15:42] LABS: TSH Reflex To Free T4 2.14 uIU/ml (0.47-4.68)
== END ==
LOC: REG 13:27
PROVIDERS: ATTENDING PHYSICIAN Dermatology; FAMILY PHYSICIAN Internal Medicine
DX: G50.1 Atypical facial pain (principal); D89.89 Other specified disorders involving the immune mechanism, not elsewhere classified
CPT/HCPCS: 36415; 80053; 84443; 85025

== ENCOUNTER 2024-07-07 15:18 | Emergency (ER) | payer MEDICARE, OTHER, SELFPAY ==
[2024-07-07 15:19] VITALS: BP 158/86
[2024-07-07 16:54] VITALS: BMI 24.4
[2024-07-07 19:30] VITALS: BP 153/81
--- NOTE | 2024-07-07 21:29 | CON.NEURO ---
Neuro Assessment/Plan
Assessment
head CT imgs rev'd, normal
not typical presentation for any condition i'm familiar with ddx
trigeminal neuralgia (TGN) - usually unilateral (can be bilateral), usually shooting/stabbing/electric (can be burning)
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
in either case, treatment options offered
Rx nortriptylene 25 mg bedtime (good for burning pain, side effects sedation, long QT)
Rx Trileptal 300 BID (good for trigeminal neuralgia, shooting/electric pain, side effects low sodium)
trigeminal nerve block in ED (risk of bleeding/bruising potentially large but not dangerous)
she declines these treatments, wants to go home, discuss with her children who are in the medical field and potentially obtain a second opinion
Consultation
Order
Date of Consultation: 07/07/24
Requesting Provider: Irineo Ricks
Reason for Consult: facial pain
Subjective/Objective
Subjective Data
Date of Service: July 07, 2024
from ED notes:
73-year-old female past medical history of hypothyroidism, GERD presenting to the emergency department today with concerns of facial burning over the past 10 days initially started around the mouth and now extending through the lower part of her
face. Has been on gabapentin for neuropathy but was increased in dose to help with the burning sensation without specific improvement. Also has been taking some Motrin Tylenol and Benadryl without relief. Denies any chest pain shortness of breath
numbness weakness or additional concerns otherwise. No recent fevers or illnesses.
She denies burning inside the mouth, tongue, or throat. denies shooting/electric pain. no speech changes, weakness, or numbness
Objective Data
Vital Signs
Temp Pulse Resp BP Pulse Ox
36.6 C 88 18 153/81 100
07/07/24 15:19 07/07/24 19:30 07/07/24 19:30 07/07/24 19:30 07/07/24 19:30
Patient Allergies
ciprofloxacin (From Cipro) Allergy (Verified 07/07/24 15:22)
Unknown
Physical Exam
-
Visual ramirez are full
face symmetric
facial sensation intact to touch/pin bilateral V1-V3, no allodynia
Medications
-
Home Medications
�Medication �Instructions �Recorded
lipase 16,800-protease 2 cap PO MEALS Supplement ##0 10/08/14
56,800-amylase 98,400 unit
capsule, delayed rel (Pancreaze)
amlodipine 2.5 mg tablet 2.5 mg PO HS Blood Pressure 08/22/15
ascorbic acid (vitamin C) 500 mg 500 mg PO DAILY Supplement ##0 08/22/15
tablet (Vitamin C)
levothyroxine 112 mcg tablet 112 mcg PO DAILY Thyroid 08/22/15
omeprazole 20 mg capsule,delayed 20 mg PO DAILY GERD 08/22/15
release
aspirin 81 mg tablet,delayed 81 mg PO DAILY Blood Clot 07/11/17
release Prevention/Tx ##0
Lactobac no.2-Bifidobac no.1-S. 1 cap PO DAILY Supplement 03/31/24
thermo 112.5 billion cell capsule
(Visbiome)
calcium 500 mg 1 tab PO DAILY Supplement 03/31/24
(carb,gluconate)-magnesium 250 mg
(gluc,oxide) tablet (Calcium
Magnesium)
cholecalciferol (vitamin D3) 25 25 mcg PO DAILY Supplement 03/31/24
mcg (1,000 unit) tablet (Vitamin
D3)
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
syringe (Prolia) Disorder
ferrous sulfate 325 mg (65 mg 325 mg PO DAILY Supplement 03/31/24
iron) tablet
gabapentin 300 mg capsule 600 mg PO HS Pain 03/31/24
nortriptyline 10 mg capsule 10 mg PO NOON Mental Health/Anxiety 03/31/24
therapeutic multivitamin 1 tab PO DAILY Supplement 03/31/24
vitamin B complex 1 tab PO DAILY Supplement 03/31/24
--- NOTE | 2024-07-07 21:30 | ED.GENMED ---
History of Present Illness
General
Chief Complaint: Facial Problem
Source: patient and spouse
Exam Limitations: none
Time Seen by Provider: 07/07/24 17:10
Nursing documentation reviewed up to this point in time: agreed with
History of Present Illness
History of Present Illness:
73-year-old female past medical history of hypothyroidism, GERD presenting to the emergency department today with concerns of facial burning over the past 10 days initially started around the mouth and now extending through the lower part of her
face. Has been on gabapentin for neuropathy but was increased in dose to help with the burning sensation without specific improvement. Also has been taking some Motrin Tylenol and Benadryl without relief. Denies any chest pain shortness of breath
numbness weakness or additional concerns otherwise. No recent fevers or illnesses.
Past History
Past History
ED Past Medical History: Hypothyroidism, Other (pancreatic CA) and Other (GERD, Kaelyn Whipple, Cancer, hypothyroidism, osteoporosis with recent Reclas)
ED Past Surgical History: Other (Whipple procedure)
Social History
Tobacco: Non-smoker
Alcohol: None
Drug: None
Personal:
Living: with family
Employment: Employed
Family History
Family History: Other (Nonsignificant)
Review of Systems
Review of Systems
Allergies reviewed?: Yes
All Other Systems: ROS reviewed and negative except as documented in HPI and ROS
Phy Exam
Physical Exam
Physical Exam:
GENERAL: Alert , in no apparent distress
EYE: pupils equal and reactive
NECK: Supple, no significant adenopathy.
ENT: o/p clr, mmm.
CARDIAC: Regular rate and rhythm .
LUNGS: Clear breath sounds bilaterally, no acute respiratory distress, no wheezes/rales/rhonchi
ABDOMEN: Soft, without focal tenderness, no r/g, no cvat
NEUROLOGICAL: Alert and oriented, no focal neuro deficits patient does have sensation to her face when palpating. Normal facial movements.
SKIN: Warm and dry, skin intact.
MUSCULOSKELETAL: No edema, well perfused.
PSYCH: Normal and appropriate interaction.
Course
Orders/Labs/Results
Orders:
Orders
07/07/24 17:48
CT Head W/o Iv Contrast Urgent
Comment:
Reason For Exam: facial burning
Vital Signs
Initial and Last Documented VS:
Initial Vital Signs
Temp Pulse Resp BP Pulse Ox
97.9 F 84 16 158/86 100
07/07/24 15:19 07/07/24 15:19 07/07/24 15:19 07/07/24 15:19 07/07/24 15:19
Last Documented Vital Signs
Temp Pulse Resp BP Pulse Ox
97.9 F 88 18 153/81 100
07/07/24 15:19 07/07/24 19:30 07/07/24 19:30 07/07/24 19:30 07/07/24 19:30
MDM/Problems Addressed
MDM/Problems Addressed:
73-year-old male presenting to the emergency department today with concerns of a burning sensation initially around her mouth and out to the lower portion of her face over the past 10 days. Here she is well-appearing no distress Case was discussed
with neurology and recommended head CT which was normal. Neurology then saw the patient made recommendations and they will follow-up as an outpatient. Otherwise stable for discharge. Return precautions given.
*Critical Care Note
Total Time (30-74mins, 75-104mins- exclusive of procedures): Not Applicable
ED Attending Note
-
Portions of this chart may have been created with voice recognition software.� Occasional wrong word or��sound alike� substitutions may have occurred due to the inherent limitations of voice recognition software.
Discharge Plan
Departure
Patient Disposition: Home (Routine Discharge)
Date of Disposition: 07/07/24
Time of Disposition: 21:40
Patient with high blood pressure during this ER visit?: No
Condition: Good
Covid-19: Not Applicable
Discharge Problem:
Facial burning
Instructions: Neuropathic pain
Prescriptions:
No Action
Pancreaze 16,800-56,800- 98,400 unit Capsule,Delayed Release(Dr/Ec)
2 cap PO MEALS Qty: 0
Patient Comments:
unknown dose
amlodipine 2.5 MG tablet
2.5 mg PO HS
ascorbic acid (vitamin C) [Vitamin C] 500 mg Tablet
500 mg PO DAILY Qty: 0
Patient Comments:
powder
omeprazole 20 MG capsule,delayed release(DR/EC)
20 mg PO DAILY
levothyroxine 112 MCG tablet
112 mcg PO DAILY
aspirin 81 mg Tablet,Delayed Release (Dr/Ec)
81 mg PO DAILY Qty: 0
therapeutic multivitamin Tablet
1 tab PO DAILY
nortriptyline 10 mg Capsule
10 mg PO NOON
ferrous sulfate 325 mg (65 mg iron) Tablet
325 mg PO DAILY
gabapentin 300 mg Capsule
600 mg PO HS
vitamin B complex Tablet
1 tab PO DAILY
cholecalciferol (vitamin D3) [Vitamin D3] 25 mcg (1,000 unit) Tablet
25 mcg PO DAILY
Visbiome 112.5 billion cell Capsule
1 cap PO DAILY
Prolia 60 mg/mL Syringe
60 mg SC [id number]
Calcium Magnesium 500 mg calcium- 250 mg Tablet
1 tab PO DAILY
Referrals:
Patricia Whipple MD [Family Provider, Internal Medicine]
Activity Restrictions/Additional Instructions:
You came to the emergency department today with concerns of burning sensation to your face. Please follow closely as an outpatient. Return for any worsening, new or concerning symptoms.
Interventions
Interventions:
*Risk Screen - Suicide Last Done: 07/07/24 15:19
*General Assessment Last Done: 07/07/24 15:19
*Neglect/Abuse Screening Last Done: 07/07/24 15:19
*ED COVID-19 Vaccine History Last Done: 07/07/24 16:54
ED- Neurological Assessment Last Done: 07/07/24 16:54
ED-Skin Assessment Last Done: 07/07/24 16:54
Discharge Date and Time
Print Language: GREENLANDIC
== END 2024-07-07 21:55 | disposition home or self-care (01) ==
LOC: EMR 15:18
PROVIDERS: EMERGENCY PHYSICIAN Student in an Organized Health Care Education/Training Program; FAMILY PHYSICIAN Internal Medicine; OTHER PHYSICIAN Psychiatry & Neurology Clinical Neurophysiology
DX: R20.8 Other disturbances of skin sensation (principal); E03.9 Hypothyroidism, unspecified; K21.9 Gastro-esophageal reflux disease without esophagitis; G62.9 Polyneuropathy, unspecified; Z88.1 Allergy status to other antibiotic agents; Z79.899 Other long term (current) drug therapy; Z79.890 Hormone replacement therapy; Z85.07 Personal history of malignant neoplasm of pancreas; M81.0 Age-related osteoporosis without current pathological fracture
CPT/HCPCS: 99284; 70450

== ENCOUNTER 2024-08-06 16:53 | Emergency (ER) | payer MEDICARE, OTHER, SELFPAY ==
[2024-08-06 17:18] VITALS: BP 149/84
--- NOTE | 2024-08-06 18:35 | ED.GENMED ---
History of Present Illness
General
Chief Complaint: Eye Problems
Source: patient
Time Seen by Provider: 08/06/24 18:13
History of Present Illness
History of Present Illness:
73-year-old female with past medical history of GERD, hypothyroidism and pancreatic cancer status post Whipple procedure in 2014 presenting to the emergency department for evaluation after she was washing her face when she felt a sudden pain in her
right eye and foreign body sensation that has persisted and accompanied with some minor tearing to the right eye. Patient denies any contact lens use or glasses. She denies any visual disturbances. She describes it as if she has a constant
eyelash within her right eye that she cannot get rid of.
Past History
Past History
ED Past Medical History: Hypothyroidism, Other (pancreatic CA) and Other (GERD, Kaelyn Whipple, Cancer, hypothyroidism, osteoporosis with recent Reclas)
ED Past Surgical History: Other (Whipple procedure)
Social History
Tobacco: Non-smoker
Alcohol: None
Drug: None
Personal:
Living: with family
Employment: Employed
Family History
Family History: Other (Nonsignificant)
Review of Systems
Review of Systems
All Other Systems: ROS reviewed and negative except as documented in HPI and ROS
Phy Exam
Physical Exam
Physical Exam:
GENERAL: Alert , in no apparent distress
EYE: conjunctiva slightly injected on the right eye: Pupils 3 mm bilateral, EOMI, no proptosis, no periorbital edema or erythema. Lids were inverted without any evidence for foreign body
FLUORESCEIN STAIN: Small punctate less than 1 mm abrasion at the 10 o'clock position of the iris
SLIT LAMP: Same small punctate abrasion noted. No foreign body. No hyphema
Head: Normocephalic atraumatic
NECK: Supple,
ENT: mmm.
LUNGS: no acute respiratory distress
NEUROLOGICAL: Alert and oriented
SKIN: Warm and dry, skin intact.
MUSCULOSKELETAL: well perfused.
PSYCH: Normal and appropriate interaction.
Scores
Heart Failure Risk
Heart Failure Risk Score: Not Applicable
Heart Score for Chest Pain Patients
STEMI patient?: Not applicable
Withdrawal Assessment of Alcohol
Withdrawal Assessment Completed?: Not applicable
Course
Orders/Labs/Results
Orders:
Orders
08/06/24 18:41
Fluorescein Sodium [Ful-Adelita] 1 mg .ROUTE .STK-MED ONE
Tetracaine HCl [Tetracaine 0.5% Ophthalmic Solution] 1 drop .ROUTE .STK-MED ONE
Vital Signs
Initial and Last Documented VS:
Initial Vital Signs
Temp Pulse Resp BP Pulse Ox
97.9 F 101 18 149/84 99
08/06/24 17:18 08/06/24 17:18 08/06/24 17:18 08/06/24 17:18 08/06/24 17:18
Last Documented Vital Signs
Temp Pulse Resp BP Pulse Ox
97.9 F 101 18 149/84 99
08/06/24 17:18 08/06/24 17:18 08/06/24 17:18 08/06/24 17:18 08/06/24 18:36
MDM/Problems Addressed
Differential Diagnosis Includes:
- Foreign body
- Corneal abrasion
- Iritis
- Conjunctivitis
- Glaucoma
MDM/Problems Addressed:
73-year-old female presented to the ER for evaluation of right eye pain that started suddenly while she was washing her face earlier this evening. Based off exam I am most suspicious for small corneal abrasion. Patient is otherwise well-appearing
and in no acute distress. She notes significant relief of her pain following instillation of tetracaine. Will prescribe erythromycin ointment for comfort. Information for ophthalmology provided. Stable for discharge home.
*Pulse Oximetry
SaO2: 99
Oxygen Mode of Delivery: Room air
Patient hypoxic: no
*Critical Care Note
Total Time (30-74mins, 75-104mins- exclusive of procedures): Not Applicable
ED Attending Note
-
Portions of this chart may have been created with voice recognition software.� Occasional wrong word or��sound alike� substitutions may have occurred due to the inherent limitations of voice recognition software.
Discharge Plan
Departure
Patient Disposition: Home (Routine Discharge)
Date of Disposition: 08/06/24
Time of Disposition: 18:35
Patient with high blood pressure during this ER visit?: Yes
Discharge Problem:
Injury of conjunctiva and corneal abrasion of right eye w/o FB
Instructions: Corneal Abrasion (DC)
Prescriptions:
New
erythromycin 5 mg/gram (0.5 %) ointment
1 applic ophthalmic (eye) DAILY Qty: 3.5 0RF
No Action
Pancreaze 16,800-56,800- 98,400 unit Capsule,Delayed Release(Dr/Ec)
2 cap PO MEALS Qty: 0
Patient Comments:
unknown dose
amlodipine 2.5 MG tablet
2.5 mg PO HS
ascorbic acid (vitamin C) [Vitamin C] 500 mg Tablet
500 mg PO DAILY Qty: 0
Patient Comments:
powder
omeprazole 20 MG capsule,delayed release(DR/EC)
20 mg PO DAILY
levothyroxine 112 MCG tablet
112 mcg PO DAILY
aspirin 81 mg Tablet,Delayed Release (Dr/Ec)
81 mg PO DAILY Qty: 0
therapeutic multivitamin Tablet
1 tab PO DAILY
nortriptyline 10 mg Capsule
10 mg PO NOON
ferrous sulfate 325 mg (65 mg iron) Tablet
325 mg PO DAILY
gabapentin 300 mg Capsule
600 mg PO HS
vitamin B complex Tablet
1 tab PO DAILY
cholecalciferol (vitamin D3) [Vitamin D3] 25 mcg (1,000 unit) Tablet
25 mcg PO DAILY
Visbiome 112.5 billion cell Capsule
1 cap PO DAILY
Prolia 60 mg/mL Syringe
60 mg SC [id number]
Calcium Magnesium 500 mg calcium- 250 mg Tablet
1 tab PO DAILY
Referrals:
Rob العلي MD [Active, Ophthalmology]
Patricia Whipple MD [Family Provider, Internal Medicine]
Interventions
Interventions:
*Risk Screen - Suicide Last Done: 08/06/24 17:18
*General Assessment Last Done: 08/06/24 17:18
*ED COVID-19 Vaccine History Last Done: 08/06/24 17:18
*Nursing Disposition Last Done: 08/06/24 18:49
Discharge Date and Time
Discharge Date/Time: 08/06/24 18:49
Print Language: BELARUSIAN
== END 2024-08-06 18:49 | disposition home or self-care (01) ==
LOC: EMR 16:53
PROVIDERS: EMERGENCY PHYSICIAN Student in an Organized Health Care Education/Training Program; FAMILY PHYSICIAN Internal Medicine
DX: S05.01XA Injury of conjunctiva and corneal abrasion without foreign body, right eye, initial encounter (principal); X58.XXXA Exposure to other specified factors, initial encounter; K21.9 Gastro-esophageal reflux disease without esophagitis; E03.9 Hypothyroidism, unspecified; M81.0 Age-related osteoporosis without current pathological fracture; Z85.07 Personal history of malignant neoplasm of pancreas; Z79.82 Long term (current) use of aspirin; Z90.49 Acquired absence of other specified parts of digestive tract; Z88.1 Allergy status to other antibiotic agents
CPT/HCPCS: 99283

== ENCOUNTER 2024-08-13 20:38 | Emergency (ER) | payer MEDICARE, OTHER, SELFPAY ==
[2024-08-13 20:43] VITALS: BP 145/84
[2024-08-13 23:34] VITALS: BP 157/82
[2024-08-13 23:35] VITALS: BMI 25.0
[2024-08-14] MEDS: DECADRON 10 MG PO (00:14)
[2024-08-14] MEDS: PEPCID 20 MG PO (00:14)
--- NOTE | 2024-08-14 02:10 | ED.GENMED ---
History of Present Illness
General
Chief Complaint: Allergic Reaction
Source: patient
Exam Limitations: none
Time Seen by Provider: 08/13/24 23:48
Nursing documentation reviewed up to this point in time: agreed with
History of Present Illness
History of Present Illness:
Note:
CHIEF COMPLAINT(S)
- Tongue swelling
- Burning sensation on the face
HISTORY OF PRESENT ILLNESS
The patient is a 73-year-old female with a history of cancer (status post a mini-Whipple procedure) who presented with a swollen tongue, which she noticed around 7:00 PM after consuming fish and rice [place] from the city [place] in the day. She
describes the sensation as her mouth feeling 'full of tongue,' and emphasized a concern about thickening of the tongue. The patient stated that now she feels better, but it is not entirely back to normal.
Additionally, she reported a history of burning sensations on her face, described as intense, teo to 'pepper' being applied, reaching a severity of eight out of ten. Recently, this has decreased to one or two out of ten. This sensation was
previously evaluated by neurologists and determined to be non-neurological in origin.
ADDITIONAL HISTORY OBTAINED FROM SOURCES OTHER THAN THE PATIENT
None provided.
CHRONIC MEDICAL CONDITIONS SIGNIFICANTLY AFFECTING CARE
The patient is a cancer survivor, having undergone a mini-Whipple procedure approximately 10 years ago.
SOCIAL DETERMINANTS AFFECTING HEALTH
Not discussed.
MEDICATIONS
The patient takes Omeprazole daily for gastric protection. She also mentioned taking aspirin and has previously been prescribed Nortriptyline by a neurologist for neurogenic pain.
REVIEW OF SYSTEMS
- Head and Neck: Swollen tongue noted by the patient.
- Gastrointestinal: History of severe nausea and vomiting related to previous Norovirus infection.
- Neurological: Burning facial sensation, previously evaluated by neurologists.
PHYSICAL EXAM
- Head and Neck: Swelling of the tongue; patient reports improvement but not completely resolved.
Nursing notes reviewed and vital signs reviewed.
PROBLEM LIST
Acute Problems:
- Swollen tongue
- Burning sensation on the face
PLAN
- Administer Pepsid for gastric discomfort and symptoms.
- Administer a steroid to prevent recurrence of tongue swelling.
- Verify the patients current medication list to avoid potential drug interactions.
- Discharge the patient with instructions to use an epinephrine auto-injector if needed for allergic reactions.
DIFFERENTIAL DIAGNOSIS
The Differential Diagnosis includes, in no particular order and is not limited to:
1. Allergic reaction to food
2. Angioedema
3. Gastroesophageal reflux disease
4. Neuropathic pain
5. Allergic reaction to medication
6. Viral infection
7. Autoimmune disease
8. Medication side effect
9. Food poisoning
10. Malabsorption syndrome
Disposition:
SUMMARY OF ENCOUNTER
The patient, a 73-year-old female with a history of cancer, presented to the emergency department with swelling of her tongue after consuming fish from a manager food beverage. The patient self-administered diphenhydramine (Benadryl) prior to arrival, with
partial resolution of symptoms. In the emergency department, the patient received further treatment, resulting in complete resolution of symptoms. The patient expressed a desire to be discharged home after her condition improved.
DISPOSITION
Discharge.
ASSESSMENT
The patients presentation is consistent with an allergic reaction to food, with tongue swelling being the most acute symptom.
EMERGENCY TREATMENTS ADMINISTERED
The patient was administered unspecified treatment in the emergency department, resulting in complete symptom resolution.
PLAN
Discharge the patient with instructions on the use of an epinephrine auto-injector for potential future allergic reactions.
PATIENT EDUCATION AND COUNSELING
The patient was instructed on the use of an epinephrine auto-injector and advised to avoid triggers of allergic reactions.
FOLLOW-UP INSTRUCTIONS
The patient was advised to follow up with her primary care physician if symptoms recur or for further evaluation of her allergic reactions.
MEDICATION RECONCILIATION
1. Administered medication: Diphenhydramine (Benadryl) was taken by the patient prior to arrival.
2. Prescription or continuation: The patient will use an epinephrine auto-injector as instructed.
MEDICAL DECISION MAKING
-Complexity of Data Reviewed: Chronic conditions affecting care include the patient�s history of cancer. Differential diagnosis includes allergic reaction to food, angioedema, gastroesophageal reflux disease, neuropathic pain, allergic reaction to
medication, viral infection, autoimmune disease, medication side effect, food poisoning, and malabsorption syndrome.
-Data:
Category 1: No specific lab tests or imaging were mentioned.
Category 3: Discussion of management included decision making related to discharge and patient education on allergic reaction management.
-Risk: Consideration of Admission/Observation. Escalation of care, including admission/observation, was considered given the complexity and risk of the patients presenting complaint, exam findings, and/or their underlying comorbidities. However,
ultimately the patient is deemed safe for outpatient management with close follow-up. Reasoning: work-up reassuring, does not reveal any acute life/organ threatening processes, symptoms well controlled upon reevaluation, reexamination is reassuring,
vitals stable, patient agreeable with discharge, reliable for follow-up. Prescription drug management involved the provision of an epinephrine auto-injector.
DIAGNOSIS
- T78.1: Other adverse food reactions, not elsewhere classified (suspected allergic reaction to fish).
Past History
Past History
ED Past Medical History: Hypothyroidism, Other (pancreatic CA) and Other (GERD, Kaelyn Whipple, Cancer, hypothyroidism, osteoporosis with recent Reclas)
ED Past Surgical History: Other (Whipple procedure)
Social History
Tobacco: Non-smoker
Alcohol: None
Drug: None
Personal:
Living: with family
Employment: Employed
Family History
Family History: Other (Nonsignificant)
Review of Systems
Review of Systems
Allergies reviewed?: Yes
Other source history: family
All Other Systems: ROS reviewed and negative except as documented in HPI and ROS
Constitutional: Denies fever or fatigue
EENT: Reports mouth swelling
Respiratory: Denies cough or trouble breathing
Cardiac: Reports no symptoms
ABD/GI: Reports no symptoms
: Reports no symptoms
Musculoskeletal: Reports no symptoms
Skin: Reports no symptoms
Neurological: Reports no symptoms
Endocrine: Reports no symptoms
Hematologic/Lymphatic: Reports no symptoms
Psychiatric: Reports no symptoms
Phy Exam
General Physical Exam
General Presentation: well appearing and mild distress
General age: appears stated age
General Skin: warm and dry
General Habitus: normal
General Hydration: appears well hydrated
ENT Exam
ENT Exam: EOMI, pharynx normal and swallowing well
Cardiovascular Exam
Cardiovascular Exam: regular rate/rhythm and no edema
Neurological Exam
Neurological Exam: alert and oriented x3
Musculoskeletal Exam
Musculoskeletal Exam: full ROM
Skin Exam
Skin Exam: normal color and warm/dry
Psychiatric Exam
Psychiatric Exam: normal mood/affect
Course
Orders/Labs/Results
Orders:
Orders
08/14/24 00:09
Dexamethasone Pf [Decadron] 10 mg PO NOW STA
Famotidine [Pepcid] 20 mg PO NOW STA
Vital Signs
Initial and Last Documented VS:
Initial Vital Signs
Temp Pulse Resp BP Pulse Ox
98.4 F 93 18 145/84 100
08/13/24 20:43 08/13/24 20:43 08/13/24 20:43 08/13/24 20:43 08/13/24 20:43
Last Documented Vital Signs
Temp Pulse Resp BP Pulse Ox
98.4 F 93 18 157/82 99
08/13/24 20:43 08/13/24 20:43 08/13/24 20:43 08/13/24 23:34 08/13/24 23:37
*Pulse Oximetry
SaO2: 99
Oxygen Mode of Delivery: Room air
Patient hypoxic: no
*Critical Care Note
Total Time (30-74mins, 75-104mins- exclusive of procedures): Not Applicable
ED Attending Note
-
Portions of this chart may have been created with voice recognition software.� Occasional wrong word or��sound alike� substitutions may have occurred due to the inherent limitations of voice recognition software.
Discharge Plan
Departure
Patient Disposition: Home (Routine Discharge)
Date of Disposition: 08/14/24
Time of Disposition: 02:10
Patient with high blood pressure during this ER visit?: Yes
Condition: Good
Discharge Problem:
Allergic reaction
Instructions: Angioedema, Allergic reaction - ED discharge instructions, BLOOD PRESSURE
Prescriptions:
New
diphenhydramine HCl [Benadryl] 25 mg capsule
25 mg PO TID PRN (Reason: allergy symptoms) Qty: 14 0RF
prednisone 50 mg Tablet
50 mg PO DAILY Qty: 4 0RF
epinephrine [EpiPen] 0.3 mg/0.3 mL Auto-Injector
0.3 mg IM .STAT PRN (Reason: anaphylaxis) Qty: 1 0RF
No Action
Pancreaze [phone]- [phone],400 unit Capsule,Delayed Release(Dr/Ec)
2 cap PO MEALS Qty: 0
Patient Comments:
unknown dose
amlodipine 2.5 MG tablet
2.5 mg PO HS
ascorbic acid (vitamin C) [Vitamin C] 500 mg Tablet
500 mg PO DAILY Qty: 0
Patient Comments:
powder
omeprazole 20 MG capsule,delayed release(DR/EC)
20 mg PO DAILY
levothyroxine 112 MCG tablet
112 mcg PO DAILY
aspirin 81 mg Tablet,Delayed Release (Dr/Ec)
81 mg PO DAILY Qty: 0
therapeutic multivitamin Tablet
1 tab PO DAILY
nortriptyline 10 mg Capsule
10 mg PO NOON
ferrous sulfate 325 mg (65 mg iron) Tablet
325 mg PO DAILY
gabapentin 300 mg Capsule
600 mg PO HS
vitamin B complex Tablet
1 tab PO DAILY
cholecalciferol (vitamin D3) [Vitamin D3] 25 mcg (1,000 unit) Tablet
25 mcg PO DAILY
Visbiome 112.5 billion cell Capsule
1 cap PO DAILY
Prolia 60 mg/mL Syringe
60 mg SC [id number]
Calcium Magnesium 500 mg calcium- 250 mg Tablet
1 tab PO DAILY
erythromycin 5 mg/gram (0.5 %) ointment
1 applic ophthalmic (eye) DAILY Qty: 3.5 0RF
Referrals:
Patricia Whipple MD [Family Provider, Internal Medicine]
Interventions
Interventions:
*Risk Screen - Suicide Last Done: 08/13/24 20:43
*General Assessment Last Done: 08/13/24 23:37
*Neglect/Abuse Screening Last Done: 08/13/24 20:43
*ED- Fall Risk Assessment Last Done: 08/13/24 23:37
*ED COVID-19 Vaccine History Last Done: 08/13/24 23:37
ED- Cardiac Assessment Last Done: 08/13/24 23:37
ED- Pulmonary Assessment Last Done: 08/13/24 23:37
ED-Skin Assessment Last Done: 08/13/24 23:37
Discharge Date and Time
Print Language: DIVEHI
[2024-08-14 02:26] VITALS: BP 158/81
== END 2024-08-14 02:30 | disposition home or self-care (01) ==
LOC: EMR 20:38
PROVIDERS: EMERGENCY PHYSICIAN Student in an Organized Health Care Education/Training Program; FAMILY PHYSICIAN Internal Medicine
DX: T78.1XXA Other adverse food reactions, not elsewhere classified, initial encounter (principal); R22.0 Localized swelling, mass and lump, head; R20.8 Other disturbances of skin sensation; K21.9 Gastro-esophageal reflux disease without esophagitis; E03.9 Hypothyroidism, unspecified; M81.0 Age-related osteoporosis without current pathological fracture; Z85.07 Personal history of malignant neoplasm of pancreas; Z79.82 Long term (current) use of aspirin; Z79.899 Other long term (current) drug therapy; Z88.1 Allergy status to other antibiotic agents
CPT/HCPCS: 99283

== ENCOUNTER → 2024-09-11 16:41 | Outpatient (REF) | payer MEDICARE, OTHER, SELFPAY | LOC: RAD 16:41 | PROVIDERS: ATTENDING PHYSICIAN Internal Medicine | DX: M79.671 Pain in right foot (principal) | CPT/HCPCS: 73630 ==

== ENCOUNTER → 2024-09-15 08:28 | Outpatient (REF) | payer MEDICARE, OTHER, SELFPAY ==
[2024-09-15 09:35] LABS: Hematocrit 40.9 % (37.0-47.0); Hemoglobin 13.4 g/dL (12.0-16.0); Mean Corp Hgb Conc. 32.8 g/dL (33.0-37.0); Mean Corpuscular Volume 90.5 fL (81.0-99.0); Nucleated Red Blood Cells % 0 %; Platelet Count 228 10^3/uL (130-400); Red Cell Dist. Width 12.2 % (11.5-14.5)
[2024-09-15 10:30] LABS: ALT (SGPT) 21 U/L (0-35); AST (SGOT) 22 U/L (14-36); Albumin 4.4 g/dl (3.5-5.0); Alkaline Phosphatase 103 U/L (38-126); Blood Urea Nitrogen 15 mg/dl (7-17); Calcium 9.3 mg/dl (8.4-10.2); Carbon Dioxide 25 mmol/L (22-30); Chloride 104 mmol/L (98-107); Glucose 93 mg/dl (70-99); Potassium 5.1 mmol/L (3.5-5.1); Sodium 136 mmol/L (135-145); Total Protein 7.1 g/dl (6.3-8.2); eGFR 59.49
[2024-09-15 10:35] LABS: Vitamin D, 25-OH*** 73.8 ng/mL (30-80)
[2024-09-15 11:00] LABS: Glycohemoglobin (HgbA1c) 5.9 % (4.0-5.6)
[2024-09-15 11:25] LABS: Folate > 20.0 ng/ml (2.76-20); Vitamin B12 937 pg/ml (239-931)
[2024-09-17 01:02] LABS: CTx 133 pg/mL
== END ==
LOC: REG 08:28
PROVIDERS: ATTENDING PHYSICIAN Internal Medicine Infectious Disease; FAMILY PHYSICIAN Internal Medicine; REFERRING PHYSICIAN Internal Medicine Endocrinology, Diabetes & Metabolism
DX: E03.9 Hypothyroidism, unspecified (principal); D64.9 Anemia, unspecified; E53.8 Deficiency of other specified B group vitamins; E78.1 Pure hyperglyceridemia; R53.83 Other fatigue; M81.0 Age-related osteoporosis without current pathological fracture; E55.9 Vitamin D deficiency, unspecified; E87.1 Hypo-osmolality and hyponatremia
CPT/HCPCS: 36415; 80053; 82306; 82523; 82607; 82746; 83036; 84443; 84630; 84681; 85025

== ENCOUNTER → 2024-09-16 14:35 | Outpatient (REF) | payer MEDICARE, OTHER, SELFPAY | LOC: RAD 14:35 | PROVIDERS: ATTENDING PHYSICIAN Internal Medicine Endocrinology, Diabetes & Metabolism; FAMILY PHYSICIAN Internal Medicine | DX: M81.0 Age-related osteoporosis without current pathological fracture (principal); Z78.0 Asymptomatic menopausal state | CPT/HCPCS: 77080 ==

== ENCOUNTER → 2025-01-13 17:04 | Outpatient (REF) | payer MEDICARE, OTHER, SELFPAY | LOC: RAD 17:04 | PROVIDERS: ATTENDING PHYSICIAN Internal Medicine Gastroenterology; FAMILY PHYSICIAN Internal Medicine | DX: R05.1 Acute cough (principal) | CPT/HCPCS: 71046 ==